=== PATIENT | female | born 1935 | race Caucasian/White ===

== ENCOUNTER 2021-05-21 19:29 | Inpatient (IN) | payer MEDICARE ==
[~2021-05-21] VITALS: Ht 170.2 cm; Wt 64.4 kg
[~2021-05-21 19:29] MED LIST: AZITHROMYCIN 2250 MG PO; DOXYCYCLINE 10100 MG PO; IBUPROFEN 800800 M1 PO; PREDNISONE 10 M10 MG PO; PROTONIX40 M1 PO; XANAX 0.25 MG0.25 MG PO; XOPENEX0.31 MG/3 INH
[2021-05-21 19:38] VITALS: BP 180/74
[2021-05-21 20:16] LABS: ABSOLUTE EOSINOPHILS 0.1 thou/uL (0.0-0.7); ABSOLUTE LYMPHOCYTES 0.8 thou/uL (0.8-5.3); ABSOLUTE MONOCYTES 0.9 thou/uL (0.0-1.2); ABSOLUTE NEUTROPHILS 8.6 thou/uL (1.6-8.1); BASOPHILS 0.3 %; HEMATOCRIT 46.4 % (37.0-47.0); HEMOGLOBIN 15.6 gm/dL (12.0-15.0); LYMPHOCYTES 7.4 %; MCH 30.6 pg (26.0-34.0); MCHC 33.5 g/dL (28.0-37.0); MCV 91.1 fL (80.0-100.0); MONOCYTES 8.8 %; MPV 9.4 fl. (7.2-11.1); NUCLEATED RBCS 0 /100WBC; PLATELET COUNT* 305 thou/uL (150-400); POLYS 82.5 %; RBC 5.09 mil/uL (4.20-5.00); RDW-CV 13.4 % (10.5-14.5); WBC 10.4 thou/uL (4.0-11.0)
[2021-05-21 20:17] LABS: INFLUENZA A ANTIGEN Negative (Negative); INFLUENZA B ANTIGEN Negative (Negative)
[2021-05-21 20:25] LABS: CALCIUM 8.8 mg/dL (8.5-10.1); CREATININE 1.1 mg/dL (0.6-1.3); POTASSIUM 3.7 mmol/L (3.5-5.1)
[2021-05-21 20:36] LABS: ALBUMIN 3.6 g/dL (3.4-5.0); TOTAL BILIRUBIN 0.7 mg/dL (<0.1-1.0); TOTAL PROTEIN 8.1 g/dL (6.4-8.2)
[2021-05-22] VITALS (8 sets, daily range): BP systolic 137–190; BP diastolic 51–65
--- NOTE | 2021-05-22 09:00 | EKG ---
[place] [address] ELECTROCARDIOGRAM REPORT Name: SCOTTAFRICADOMINIQUE Room: [place] [address] ADM IN .R.#: [id number] Admission: 05/21/21 Attend Phys: Iban Herman Discharge: Date of : 33 Date of Service: 05/21/211957 Report #: [id number] THIS REPORT FOR: //name// [facility] ED Test Date: 2021-05-21 Test Time: 19:58:49 Pat Name: DOMINIQUE PABON Department: Room: [facility] Gender: F Machine Operations Supervisor: MARGIE : 1935 Requested By: Patricia Luque Order Number: [id number] MD: Yony Mccord Measurements Intervals [place] Rate: 97 P: 0 VT: 159 QRS: 74 QRSD: 85 T: 243 QT: 300 QTc: 381 Interpretive Statements Sinus rhythm Nonspecific T abnormalities, diffuse leads, consider ischemia Compared to ECG 06/11/2015 08:10:46 No significant changes noted Electronically Signed On 05-22-2021 9:00:13 AEROSPACE QUALITY ENGINEER by Yony Mccord [email or web address] <ELECTRONICALLY SIGNED> By: Yony Mccord MD, FACC 05/22/21899 57 57 Yony Mccord MD, FAC /EPI
--- NOTE | 2021-05-22 09:00 | EKG ---
[place] [address] ELECTROCARDIOGRAM REPORT Name: SCOTTAFRICADOMINIQUE Pablo Room: [place] [address] ADM IN .R.#: [id number] Admission: 05/21/21 Attend Phys: Iban Herman Discharge: Date of : 33 Date of Service: 05/21/212205 Report #: [id number] THIS REPORT FOR: //name// [facility] ED Test Date: 2021-05-21 Test Time: 22:06:47 Pat Name: DOMINIQUE PABON Department: Room: [facility] Gender: F Correction Officer Head: : 1935 Requested By: Patricia Luque Order Number: [id number] MD: Yony Mccord Measurements Intervals [place] Rate: 94 P: -25 [place]: 169 QRS: 74 QRSD: 87 T: 171 QT: 327 QTc: 409 Interpretive Statements Sinus rhythm Borderline low voltage, extremity leads Borderline repolarization abnormality, consider ischemia Compared to ECG 05/21/2021 19:58:49 No significant changes noted Electronically Signed On 05-22-2021 9:00:32 ROASTER OPERATOR by Yony Mccord [email or web address] <ELECTRONICALLY SIGNED> By: Yony Mccord MD, FACC 05/22/21899 05 05 Yony Mccord MD, FAC /EPI
[2021-05-23 00:18] VITALS: BP 167/62
[2021-05-23 04:34] VITALS: BP 195/85
[2021-05-23 06:52] VITALS: BP 151/61
[2021-05-23 08:00] VITALS: BP 185/71
[2021-05-23 12:42] VITALS: BP 134/74
[2021-05-23 17:26] VITALS: BP 137/46
[2021-05-24 02:38] VITALS: BP 155/65
[2021-05-24 05:56] VITALS: BP 162/67
[2021-05-24 14:58] VITALS: BP 158/67
[2021-05-24 16:00] VITALS: BP 201/131
[2021-05-24 20:00] VITALS: BP 140/84
[2021-05-25 01:29] VITALS: BP 146/65
[2021-05-25 02:00] VITALS: BP 132/88
[2021-05-25 08:00] VITALS: BP 138/45
--- NOTE | 2021-05-25 09:26 | EKG ---
[place] [address] ELECTROCARDIOGRAM REPORT Name: DOMINIQUE PABON Room: [address] IN M.R.#: [id number] Admission: 05/21/21 Attend Phys: Iban Herman Discharge: Date of : 33 Date of Service: 05/24/212002 Report #: [id number] THIS REPORT FOR: //name// [facility] Test Date: 2021-05-24 Test Time: 20:03:10 Pat Name: DOMINIQUE PABON Department: Room: [address] Gender: F Inside Sales Engineer: : 1935 Requested By: Iban Herman Order Number: [id number] Reading MD: Nicolas Epstein Measurements Intervals [place] Rate: 128 P: [place]: QRS: 75 QRSD: 74 T: 212 QT: 283 QTc: 413 Interpretive Statements Atrial fibrillation Rare wide QRS beat Low voltage, precordial leads Nonspecific STT abnormality Compared to ECG 05/21/2021 22:06:47 Rare wide QRS beat is noted Sinus rhythm no longer present; atrial fib is noted Anterolateral ST segment depression has diminished Electronically Signed On 05-25-2021 9:26:20 SVP OPERATIONS by Nicolas Epstein [email or web address] <ELECTRONICALLY SIGNED> By: Nicolas Epstein MD, FACC 05/25/21 0926 02 02 Nicolas Epstein MD, LOCATED WITHIN [facility] /EPI
[2021-05-25 16:00] VITALS: BP 167/68
[2021-05-25 17:57] LABS: HEMATOCRIT 42.1 % (37.0-47.0); HEMOGLOBIN 14.1 gm/dL (12.0-15.0); MCH 29.9 pg (26.0-34.0); MCHC 33.4 g/dL (28.0-37.0); MCV 89.4 fL (80.0-100.0); MPV 9.9 fl. (7.2-11.1); NUCLEATED RBCS 0 /100WBC; PLATELET COUNT* 403 thou/uL (150-400); RBC 4.71 mil/uL (4.20-5.00); RDW-CV 13.6 % (10.5-14.5); WBC 20.5 thou/uL (4.0-11.0)
[2021-05-25 18:05] LABS: ALBUMIN 2.4 g/dL (3.4-5.0); APTT 30.5 Seconds (25.0-31.3); CALCIUM 8.4 mg/dL (8.5-10.1); INR 1.2; MAGNESIUM 2.7 mg/dL (1.8-2.4); POTASSIUM 3.7 mmol/L (3.5-5.1); PROTIME 12.2 Seconds (9.20-11.50); TOTAL BILIRUBIN 0.4 mg/dL (<0.1-1.0); TOTAL PROTEIN 6.4 g/dL (6.4-8.2)
[2021-05-25 18:43] LABS: ABSOLUTE LYMPHOCYTES 0.4 thou/uL (0.8-5.3); ABSOLUTE MONOCYTES 0.4 thou/uL (0.0-1.2); ABSOLUTE NEUTROPHILS 19.7 thou/uL (1.6-8.1); PLATELET ESTIMATE INCREASED
[2021-05-25 20:00] VITALS: BP 141/63
[2021-05-26 00:37] VITALS: BP 148/53
[2021-05-26 08:00] VITALS: BP 164/64
[2021-05-26 09:09] LABS: ABSOLUTE LYMPHOCYTES 0.8 thou/uL (0.8-5.3); ABSOLUTE MONOCYTES 0.9 thou/uL (0.0-1.2); ABSOLUTE NEUTROPHILS 18.9 thou/uL (1.6-8.1); BASOPHILS 0.2 %; HEMATOCRIT 44.5 % (37.0-47.0); HEMOGLOBIN 14.7 gm/dL (12.0-15.0); LYMPHOCYTES 3.7 %; MCH 30.1 pg (26.0-34.0); MCHC 33.1 g/dL (28.0-37.0); MCV 90.9 fL (80.0-100.0); MONOCYTES 4.3 %; MPV 9.4 fl. (7.2-11.1); NUCLEATED RBCS 0 /100WBC; PLATELET COUNT* 447 thou/uL (150-400); POLYS 91.8 %; RBC 4.89 mil/uL (4.20-5.00); WBC 20.5 thou/uL (4.0-11.0)
[2021-05-26 09:17] LABS: CALCIUM 8.3 mg/dL (8.5-10.1); CREATININE 0.9 mg/dL (0.6-1.3); POTASSIUM 3.7 mmol/L (3.5-5.1)
[2021-05-26 12:22] VITALS: BP 153/68
[2021-05-26 12:50] VITALS: BP 112/78
[2021-05-26 16:00] VITALS: BP 157/66
[2021-05-26 20:00] VITALS: BP 165/74
[2021-05-27] VITALS: BP 163/63
[2021-05-27 08:00] VITALS: BP 149/81
[2021-05-27 12:00] VITALS: BP 151/64
[2021-05-27 16:00] VITALS: BP 194/81
[2021-05-27 16:10] LABS: CALCIUM 7.1 mg/dL (8.5-10.1)
[2021-05-28] VITALS (7 sets, daily range): BP systolic 149–181; BP diastolic 64–100
[2021-05-28 06:51] LABS: HEMATOCRIT 40.6 % (37.0-47.0); HEMOGLOBIN 13.3 gm/dL (12.0-15.0); MCH 29.6 pg (26.0-34.0); MCHC 32.8 g/dL (28.0-37.0); MCV 90.5 fL (80.0-100.0); MPV 9.4 fl. (7.2-11.1); NUCLEATED RBCS 0 /100WBC; PLATELET COUNT* 418 thou/uL (150-400); RBC 4.48 mil/uL (4.20-5.00); RDW-CV 13.8 % (10.5-14.5); WBC 18.5 thou/uL (4.0-11.0)
[2021-05-28 07:05] LABS: ALBUMIN 2.4 g/dL (3.4-5.0); CALCIUM 7.8 mg/dL (8.5-10.1); TOTAL BILIRUBIN 0.6 mg/dL (<0.1-1.0); TOTAL PROTEIN 5.7 g/dL (6.4-8.2)
[2021-05-28 07:27] LABS: POTASSIUM 4.5 mmol/L (3.5-5.1)
[2021-05-28 10:03] LABS: ABSOLUTE LYMPHOCYTES 0.7 thou/uL (0.8-5.3); ABSOLUTE MONOCYTES 1.1 thou/uL (0.0-1.2); ABSOLUTE NEUTROPHILS 16.7 thou/uL (1.6-8.1)
[2021-05-28 10:04] LABS: PLATELET ESTIMATE ADEQUATE
--- NOTE | 2021-05-28 14:46 | 2DMMODE ---
[place] [address] 2 D/M-MODE ECHOCARDIOGRAM Name: SCOTTAFRICADOMINIQUE Pablo Room: [address] IN [facility]#: [id number] Admission: 05/21/21 Attend Phys: Iban Herman Discharge: Date of : 34 Date of Service: 05/28/21 1445 Report #: [id number] THIS REPORT FOR: cc: Tim Wills MD, Dean L. MD Blick, David R. MD [facility] ~ APPROVED REPORT Study performed: 05/28/2021 10:27:34 EXAM: Comprehensive 2D, Doppler, and color-flow Echocardiogram Patient Location: In-Patient Room #: [facility] Status: routine BSA: 1.74 HR: 96 bpm BP: 167/64 mmHg Rhythm: Atrial Fibrillation Other Information Study Quality: Good Indications Atrial Fibrillation Dyspnea 2D Dimensions IVSd: 9.42 (7-11mm) LVOT Diam: 22.02 (18-24mm) LVDd: 44.44 mm PWd: 11.07 (7-11mm) Ascending Ao: 31.16 (22-36mm) LVDs: 31.70 (25-40mm) Aortic Root: 33.45 mm Volumes Left Atrial Volume (Systole) LA ESV Index: 24.20 mL/m2 Aortic Valve AoV Peak Jovany.: 1.13 m/s AO Peak Gr.: 5.11 mmHg LVOT Max P.12 mmHg AO Mean Gr.: 2.85 mmHg LVOT Mean P.99 mmHg LVOT Max V: 0.73 m/s AO V2 VTI: 21.41 cm LVOT Mean V: 0.46 m/s WILLY (VTI): 2.88 cm2 LVOT V1 VTI: 16.21 [place] [address] 2 D/M-MODE ECHOCARDIOGRAM Name: DOMINIQUE PABON Room: [address] IN [facility]#: [id number] Admission: 05/21/21 Attend Phys: Iban Herman Discharge: Date of : 33 Date of Service: 05/28/21 1445 Report #: [id number] Pulmonary Valve PV Peak Jovany.: 0.83 m/s PV Peak Gr.: 2.74 mmHg Tricuspid Valve RAP Estimate: 5.00 mmHg TR Peak Gr.: 26.86 mmHg RVSP: 31.00 mmHg PA Pressure: 31.00 mmHg Left Ventricle The left ventricle is normal size. There is normal LV segmental wall motion. There is normal left ventricular wall thickness. Left ventricular systolic function is normal. The left ventricular ejection fraction is within the normal range. LVEF is 65-70%. This study is not technically sufficient to allow evaluation of the LV diastolic function due to atrial fibrillation. Right Ventricle The right ventricle is normal size. The right ventricular systolic function is normal. Atria The left atrium size is normal. The right atrium size is normal. Aortic Valve The aortic valve is normal in structure. Trace aortic regurgitation. There is no aortic valvular stenosis. Mitral Valve The mitral valve is normal in structure. Mild mitral regurgitation. No evidence of mitral valve stenosis. Tricuspid Valve The tricuspid valve is normal in structure. Trace tricuspid regurgitation. estimated pa pressure 3a5 mm Hg Pulmonic Valve The pulmonary valve is normal in structure. Trace pulmonic regurgitation. Great Vessels The aortic root is normal in size. IVC is normal in size and collapses >50% [place] [address] 2 D/M-MODE ECHOCARDIOGRAM Name: DOMINIQUE PABON Room: [address]#: [id number] Admission: 05/21/21 Attend Phys: Iban Herman Discharge: Date of : 34 Date of Service: 05/28/21 1445 Report #: [id number] There is no pericardial effusion. <Conclusion> LVEF is 65-70%. Mild mitral regurgitation. Trace tricuspid regurgitation. estimated pa pressure 3a5 mm Hg <ELECTRONICALLY SIGNED> By: Jero Weaver MD, FACGurwinder 05/28/21 1445 1445 1445 Jero Weaver MD, [facility] /INF
[2021-05-29] VITALS: BP 154/78
[2021-05-29 02:06] LABS: MYCOPLASMA PNEUMONIA IgG <100 U/mL (0-99)
[2021-05-29 04:00] VITALS: BP 167/74
[2021-05-29 08:00] VITALS: BP 139/65
[2021-05-29 12:00] VITALS: BP 158/71
[2021-05-29 16:00] VITALS: BP 149/67
[2021-05-29 20:30] VITALS: BP 163/66
[2021-05-29 23:06] LABS: MYCOPLASMA PNEUMONIA IgM <770 U/mL (0-769)
[2021-05-30 04:00] VITALS: BP 135/53
[2021-05-30 07:35] LABS: ALBUMIN 2.4 g/dL (3.4-5.0); CREATININE 0.9 mg/dL (0.6-1.3); POTASSIUM 3.9 mmol/L (3.5-5.1); TOTAL BILIRUBIN 0.7 mg/dL (<0.1-1.0); TOTAL PROTEIN 5.6 g/dL (6.4-8.2)
[2021-05-30 07:48] LABS: ABSOLUTE LYMPHOCYTES 0.6 thou/uL (0.8-5.3); ABSOLUTE MONOCYTES 0.9 thou/uL (0.0-1.2); ABSOLUTE NEUTROPHILS 21.1 thou/uL (1.6-8.1); BASOPHILS 0.1 %; HEMATOCRIT 42.1 % (37.0-47.0); HEMOGLOBIN 13.6 gm/dL (12.0-15.0); LYMPHOCYTES 2.5 %; MCH 29.3 pg (26.0-34.0); MCHC 32.3 g/dL (28.0-37.0); MCV 90.8 fL (80.0-100.0); MONOCYTES 3.9 %; MPV 9.6 fl. (7.2-11.1); NUCLEATED RBCS 0 /100WBC; PLATELET COUNT* 385 thou/uL (150-400); POLYS 93.5 %; RBC 4.64 mil/uL (4.20-5.00); RDW-CV 13.8 % (10.5-14.5); WBC 22.6 thou/uL (4.0-11.0)
[2021-05-30 08:00] VITALS: BP 145/63
[2021-05-30 13:08] VITALS: BP 137/56
[2021-05-30 16:00] VITALS: BP 188/74
[2021-05-30 20:00] VITALS: BP 155/91
[2021-05-31] VITALS: BP 105/29
[2021-05-31 04:00] VITALS: BP 139/61
[2021-05-31 08:00] VITALS: BP 129/47
[2021-05-31 12:02] VITALS: BP 159/57
[2021-05-31 16:00] VITALS: BP 186/69
[2021-06-01 00:52] VITALS: BP 161/55
[2021-06-01 04:48] VITALS: BP 144/73
[2021-06-01 08:00] VITALS: BP 179/84
[2021-06-01 13:12] VITALS: BP 167/80
[2021-06-01 16:00] VITALS: BP 179/79
[2021-06-01 20:00] VITALS: BP 173/81
[2021-06-02] VITALS: BP 176/62
[2021-06-02 04:01] VITALS: BP 160/62
[2021-06-02 08:00] VITALS: BP 150/50
[2021-06-02 11:39] LABS: ABSOLUTE LYMPHOCYTES 1.3 thou/uL (0.8-5.3); ABSOLUTE MONOCYTES 1.1 thou/uL (0.0-1.2); ABSOLUTE NEUTROPHILS 25.3 thou/uL (1.6-8.1); BASOPHILS 0.1 %; HEMATOCRIT 43.7 % (37.0-47.0); HEMOGLOBIN 14.4 gm/dL (12.0-15.0); LYMPHOCYTES 4.8 %; MCH 29.9 pg (26.0-34.0); MCHC 32.9 g/dL (28.0-37.0); MONOCYTES 3.9 %; MPV 9.6 fl. (7.2-11.1); NUCLEATED RBCS 0 /100WBC; PLATELET COUNT* 292 thou/uL (150-400); POLYS 91.2 %; RBC 4.81 mil/uL (4.20-5.00); RDW-CV 13.8 % (10.5-14.5); WBC 27.7 thou/uL (4.0-11.0)
[2021-06-02 11:55] LABS: ALBUMIN 2.6 g/dL (3.4-5.0); CALCIUM 8.1 mg/dL (8.5-10.1); CREATININE 0.9 mg/dL (0.6-1.3); MAGNESIUM 2.6 mg/dL (1.8-2.4); POTASSIUM 4.3 mmol/L (3.5-5.1); TOTAL BILIRUBIN 0.8 mg/dL (<0.1-1.0); TOTAL PROTEIN 5.7 g/dL (6.4-8.2)
[2021-06-02 12:00] VITALS: BP 150/50
[2021-06-02 16:00] VITALS: BP 141/67
[2021-06-02 20:00] VITALS: BP 142/61
[2021-06-03] VITALS: BP 154/46
[2021-06-03 04:00] VITALS: BP 166/66
[2021-06-03 11:57] LABS: HEMATOCRIT 41.2 % (37.0-47.0); HEMOGLOBIN 13.4 gm/dL (12.0-15.0); MCH 29.5 pg (26.0-34.0); MCHC 32.5 g/dL (28.0-37.0); MCV 90.8 fL (80.0-100.0); MPV 10.1 fl. (7.2-11.1); NUCLEATED RBCS 0 /100WBC; PLATELET COUNT* 243 thou/uL (150-400); RBC 4.53 mil/uL (4.20-5.00); RDW-CV 13.8 % (10.5-14.5); WBC 25.3 thou/uL (4.0-11.0)
[2021-06-03 12:00] VITALS: BP 167/74
[2021-06-03 12:12] LABS: ALBUMIN 2.3 g/dL (3.4-5.0); CALCIUM 7.8 mg/dL (8.5-10.1); CREATININE 0.8 mg/dL (0.6-1.3); MAGNESIUM 2.6 mg/dL (1.8-2.4); POTASSIUM 4.6 mmol/L (3.5-5.1); TOTAL BILIRUBIN 0.7 mg/dL (<0.1-1.0); TOTAL PROTEIN 4.9 g/dL (6.4-8.2)
[2021-06-03 12:53] LABS: ABSOLUTE LYMPHOCYTES 1.8 thou/uL (0.8-5.3); ABSOLUTE MONOCYTES 0.8 thou/uL (0.0-1.2); ABSOLUTE NEUTROPHILS 22.8 thou/uL (1.6-8.1); PLATELET ESTIMATE ADEQUATE
[2021-06-03 16:22] VITALS: BP 128/57
[2021-06-03 20:00] VITALS: BP 161/70
--- NOTE | 2021-06-03 21:54 | CON ---
[address] [address] CONSULTATION Name: DOMINIQUE PABON Room: [address] IN M.R.#: [id number] Admission: 05/21/21 Attend Phys: Rob Koo Discharge: Date of : 34 Report #: [id number] THIS REPORT FOR: cc: Tim Wills MD, Dean L. MD Pervez, Adeel MD ~ DATE OF CONSULTATION: 05/25/2021 CONSULT REQUESTED BY: Iban Herman DO. INDICATION FOR CONSULTATION: Acute hypoxemic respiratory failure secondary to COVID-19. HISTORY OF PRESENT ILLNESS: An 85-year-old female. She was admitted with acute respiratory failure secondary to COVID-19. There has been progressively worsening oxygenation. Initially, she was on 2 liters of oxygen and now up to 15 liters oxygen. She maintained O2 saturation in the low 90s. Had a chest x-ray repeated, which does show significant worsening of previously seen infiltrate. She has also significant atelectasis on the right side. There is not much swelling of lower extremities or calf pain. REVIEW OF SYSTEMS: Negative except as mentioned above. PAST MEDICAL HISTORY: Diabetes, hypertension, and coronary artery disease. I do not have a measure of her left ventricular ejection fraction available at this time. Has had a heart murmur since childhood, bronchial asthma, diverticulitis, elbow surgery, left hip surgery, hypertension, hysterectomy, , appendectomy, and frequent UTIs. SOCIAL HISTORY: There is a previous history of smoking, unable to quantify at this time. CURRENT MEDICATIONS: List in [employer] reviewed. HOME MEDICATIONS: List in [employer] reviewed. IMMUNIZATION HISTORY: Has had some vaccine for COVID. I do not have details available. ALLERGIES: List in [employer] reviewed. It does not appear that the patient is in fact allergic to penicillins because she is tolerating Zosyn without problems. MORPHINE, SULFONAMIDE ANTIBIOTICS, LEVAQUIN, CODEINE, AND CEPHALOSPORINS ARE ALSO MENTIONED ALLERGIES. THERE IS ALSO MENTION OF IODINE DYE ALLERGY, BUT SHE HAD A CTA CHEST EARLIER WITH NO [place] [address] CONSULTATION Name: DOMINIQUE PABON Room: [address]#: [id number] Admission: 05/21/21 Attend Phys: Rob Koo Discharge: Date of : 34 Report #: [id number] PHYSICAL EXAMINATION: GENERAL: She is awake. VITAL SIGNS: In the records and these are reviewed. THROAT: No erythema. NECK: Does not show raised JVP. CHEST: Breath sounds are bilaterally equal. Occasional rales at right lung base. HEART: Regular. No murmur. ABDOMEN: Soft and nontender. EXTREMITIES: Lower extremities, no edema and no calf tenderness. LABORATORY DATA: The patient's lab work and imaging in [employer] reviewed. ASSESSMENT AND PLAN: 1. Acute hypoxemic respiratory failure secondary to COVID-19. Chest x-ray findings are consistent with secondary bacterial pneumonia. Also, there is significant atelectasis on the right side. Continue to titrate oxygen. If she fails to improve, then recommend adding BiPAP while asleep. 2. COVID-19. Continue with dexamethasone at current dose. Continue remdesivir. I extended duration of remdesivir to 10 days. Follow LFTs. I recommend Actemra. Unfortunately Actemra is not available. 3. Pulmonary infiltrates, these have worsened. Also, there are lobar infiltrates consistent with bacterial infection. Recommend continuing with Zosyn. We would discontinue doxycycline and start linezolid as well as azithromycin. More cultures and serologies are also ordered. 4. Atelectasis, possible consideration for BiPAP as above. I will order Mucomyst nebs. In addition, suggest other conservative therapy for atelectasis including incentive spirometry and ambulation. May also benefit from chest PT. 5. History of bronchial asthma. I do not have details available. Regardless she is on a steroid, we will also have her on nebulized bronchodilators. 6. Deep venous thrombosis prophylaxis. She is on intermediate dose Lovenox. 7. Gastrointestinal prophylaxis, Protonix. 8. Clostridium difficile prophylaxis, Lactinex. Thanks for this consultation. <ELECTRONICALLY SIGNED> By: Kristofer Esparza MD 06/03/21 2154 2228 0003Kristofer Esparza MD /nt
[2021-06-04] VITALS: BP 172/73
[2021-06-04 04:00] VITALS: BP 178/72
[2021-06-04 12:35] VITALS: BP 168/66
[2021-06-04] MEDS ORDERED: ADVAIR 250-501 EACH INH (13:07)
[2021-06-04] MEDS ORDERED: VENTOLIN HFA 1818 GM INH (13:07)
[2021-06-04] MEDS ORDERED: METOPROLOL TART25 MG PO (13:07)
[2021-06-04] MEDS ORDERED: DEXAMETHASONE1 MG PO (13:08)
[2021-06-04 14:50] VITALS: BP 168/66
== END 2021-06-04 15:04 | DRG 177 ==
LOC: M.ERS 19:29 → M.TBA-ER 20:32 → M.ORTHSURG 05-22 18:47 → M.2W 06-02 18:05
PROVIDERS: Internal Medicine; Internal Medicine Critical Care Medicine; Nurse Practitioner Family; Pediatrics; Personal Emergency Response Attendant; ADMIT Internal Medicine; ATTEND Internal Medicine
PROC: XW033E5 Introduction of Remdesivir Anti-infective into Peripheral Vein, Percutaneous Approach, New Technology Group 5 (ICD-10-PCS; principal; 2021-05-22)
PROC: 02HV33Z Insertion of Infusion Device into Superior Vena Cava, Percutaneous Approach (ICD-10-PCS; principal; 2021-05-22)
PROC: 5A0935A Assistance with Respiratory Ventilation, Less than 24 Consecutive Hours, High Flow/Velocity Cannula (ICD-10-PCS; 2021-05-24)
PROC: 5A0935A Assistance with Respiratory Ventilation, Less than 24 Consecutive Hours, High Flow/Velocity Cannula (ICD-10-PCS; 2021-05-25)
PROC: 5A0935A Assistance with Respiratory Ventilation, Less than 24 Consecutive Hours, High Flow/Velocity Cannula (ICD-10-PCS; 2021-05-26)
PROC: 5A0935A Assistance with Respiratory Ventilation, Less than 24 Consecutive Hours, High Flow/Velocity Cannula (ICD-10-PCS; 2021-05-27)
PROC: 5A0935A Assistance with Respiratory Ventilation, Less than 24 Consecutive Hours, High Flow/Velocity Cannula (ICD-10-PCS; 2021-05-28)
PROC: 5A0935A Assistance with Respiratory Ventilation, Less than 24 Consecutive Hours, High Flow/Velocity Cannula (ICD-10-PCS; 2021-05-30)
PROC: 5A0935A Assistance with Respiratory Ventilation, Less than 24 Consecutive Hours, High Flow/Velocity Cannula (ICD-10-PCS; 2021-05-31)
DX: U07.1 COVID-19 (principal); J96.01 Acute respiratory failure with hypoxia; J12.82 Pneumonia due to coronavirus disease 2019; E43 Unspecified severe protein-calorie malnutrition; J15.9 Unspecified bacterial pneumonia; J98.11 Atelectasis; J45.909 Unspecified asthma, uncomplicated; E11.9 Type 2 diabetes mellitus without complications; I25.10 Atherosclerotic heart disease of native coronary artery without angina pectoris; F41.9 Anxiety disorder, unspecified; D72.829 Elevated white blood cell count, unspecified; I10 Essential (primary) hypertension; Z90.710 Acquired absence of both cervix and uterus; Z90.49 Acquired absence of other specified parts of digestive tract; Z88.0 Allergy status to penicillin; Z88.2 Allergy status to sulfonamides; Z88.8 Allergy status to other drugs, medicaments and biological substances; Z88.6 Allergy status to analgesic agent; Z88.1 Allergy status to other antibiotic agents; Z91.041 Radiographic dye allergy status; Z87.891 Personal history of nicotine dependence; Z68.22 Body mass index [BMI] 22.0-22.9, adult; Z28.21 Immunization not carried out because of patient refusal

== ENCOUNTER 2021-06-10 17:56 | Inpatient (IN) | payer MEDICARE ==
[~2021-06-10] VITALS: Ht 170.2 cm; Wt 72.1 kg
--- NOTE | ~2021-06-10 | EMS ---
[facility] [address] [place] [address] EMS Patient Care Report Name: DOMINIQUE PABON Room: [facility] M.R.#: [id number] Admission: Attend Phys: Discharge: Date of : 34 Report #: [id number] THIS REPORT FOR: //name// Report Transmitted: 06/10/2021 18:21 EMS Care Summary [facility] [place] Incident 212 @ 06/10/2021 16:55 Incident Location [address] [place] [address] Patient DOMINIQUE PABON Female, 85 Years 1935 Patient Address [address] [place], [place] [id number] Patient History Chronic Obstructive Pulmonary Disease (COPD),Type 2 diabetes mellitus,Heart disease, unspecified,Angina,Hypertension (HTN),Pneumonia, unspecified organism,Novel Coronavirus (COVID-19),Unspecified asthma, Patient Allergies , Patient Medications Advair, Lovenox, Metoprolol, Nystatin, Tramadol, Albuterol, Chief Complaint Hip/pelvic pain Disposition Transported No Lights/Shunk Dispatch Reason Traumatic Injury Transported To [facility] Narrative [id number] DISPATCHED TO A LOCAL NURSING FACILITY FOR A HIP FRACTURE. ON SCENE, EMS WAS MET BY STAFF WITH AN 85 YOF COMPLAINING OF RIGHT HIP PX. STAFF STATES PT [facility] [address] [place] [address] EMS Patient Care Report Name: DOMINIQUE PABON Room: [facility]#: [id number] Admission: Attend Phys: Discharge: Date of : 34 Report #: [id number] SUFFERED A FALL LAST YESTERDAY AND WAS NOT SEEN AT THE HOSPITAL. STAFF STATES THEY WERE UNABLE TO HAVE A STAT XRAY PERFORMED DUE TO WEATHER, REPORTS AND XRAY WAS DONE EARLIER TODAY AND RESULTS SHOWED A FRACTURE IN THE RIGHT HIP. STAFF STATES THE NURSE practitioner ORDERED FOR THE PT TO BE TRANSPORTED FOR TREATMENT, STAFF ADVISES THE PT HAS NOT RECEIVED ANY PRN PAIN MEDICATIONS. STAFF REPORTS THE PT IS SUPPOSED TO BE ON OXYGEN BUT PT CONTINUES TO REMOVE IT, STATES BASELINE SPO2 IS 90-93% ON ROOM AIR. STAFF STATES PT IS ADMITTED TO REHAB FOR GAINING STRENGTH POST COVID PNEUMONIA. PT STATES SHE WAS ATTEMPTING TO CALL FOR HELP TO GET OUT OF BED TO USE THE RESTROOM WHEN NO ONE CAME, PT STATES SHE ENDED UP ROLLING OUT OF BED AND ONTO THE FLOOR. PT CLAIMS STAFF "LEFT ME ON THE FLOOR FOR TWO DAYS" AND WOULD NOT HELP HER. PT STATES PAIN IS FELT IN HER RIGHT HIP CLOSER TO THE POSTERIOR. PT STATES PX IS PROVOKED WITH MOVEMENT AND TOUCH. PT STATES SHE IS STILL ABLE TO MOVE HER LEG AND SENSATION IS IN TACT. PT STATES PX FEELS LIKE "SOMETHING IS PULLING ON MY FOOT." PT STATES AT REST SHE FEELS NO PX. PT STATES SHE IS NOT MORE SHORT OF BREATH THAN NORMAL WITHOUT OXYGEN. PT DENIES CHEST PX, SOA, NAUSEA/VOMITING/DIARRHEA, DIZZINESS, HEADACHE, FEVER, CHILLS. UPON ARRIVAL, PT WAS FOUND LAYING SUPINE IN BED, PT DID NOT APPEAR TO BE IN ANY DISTRESS BUT WAS HEARD LOUDLY CALLING OUT FOR STAFF. PT WAS AWAKE ALERT AND ORIENTED, AIRWAY WAS PATENT AND CLEAR, BREATHING WAS NORMAL AND REGULAR - NON LABORED, CIRCULATION WAS NORMAL AND IRREGULAR WITH EQUAL RADIAL PULSES, SKIN AND PHYSICAL ASSESSMENT NOTED WITH NO OTHER SIGNS OF TRAUMA. BSI, PT CONTACT, ABCS, PT MOVED TO [facility] VIA SHEET TRANSFER AND SECURED, PT LOADED INTO UNIT AND LOCKED IN PLACE, VITALS AND TREATMENTS NOTED, TRANSPORT INITIATED, PT FREQUENTLY REASSESSED WITH NO CHANGE IN CONDITION OR FURTHER DETERIORATION, AT DESTINATION PT WAS UNLOADED FROM UNIT AND WHEELED INTO ED, PT MOVED FROM [facility] TO ED BED VIA SHEET TRANSFER, VERBAL REPORT GIVEN AND PT CARE TRANSFERRED TO RN AT RECEIVING FACILITY. [id number] RETURNED TO SERVICE WITHOUT INCIDENT. Initial Vitals @17:15Pain: 01/16, @17:45Pain: 0, @17:28SpO2: 93, @17:41SpO2: 91, @17:49SpO2: 91, @17:31 @17:28P: 77,R: 18,BP: 177/98,Revised Trauma: 8, @17:41P: 63,R: 18,BP: 148/75,Revised Trauma: 8, @17:49P: 123,R: 18,BP: 170/85,Revised Trauma: 8, @17:28GCS: 15, @17:41GCS: 15, @17:49GCS: 15, @17:39Glucose: 187, Assessments @17:08MENTAL:SKIN:HEENT:[place] [address] EMS Patient Care Report Name: CMDOMINIQUE Pablo Room: [facility]#: [id number] Admission: Attend Phys: Discharge: Date of : 34 Report #: [id number] SOUNDS:ABDOMEN:PELVIS//GI:EXTREMITIES:PULSE:NEURO: Impression Injury Procedures @17:37 IV Therapy - cc () [facility] Response: UnchangedSucceeded @17:31 12-Lead ECG Response: UnchangedSucceeded Timeline 16:54,Dispatch Notified 16:54,Psap Call 16:55,Dispatched 16:56,En Route 17:07,On Scene 17:08,At Patient 17:15,BP: / M,PULSE: ,RR: R,SPO2: Ox,ETCO2: ,BG: ,PAIN: 8,GCS: , 17:28,BP: / M,PULSE: ,RR: R,SPO2: 93 Ox,ETCO2: ,BG: ,PAIN: ,GCS: , 17:28,BP: 177/98 M,PULSE: 77,RR: 18 R,SPO2: Ox,ETCO2: ,BG: ,PAIN: ,GCS: , 17:28,BP: / M,PULSE: ,RR: R,SPO2: Ox,ETCO2: ,BG: ,PAIN: ,GCS: 15, 17:31,12-Lead ECG,Response: UnchangedSucceeded, 17:31,BP: / M,PULSE: ,RR: R,SPO2: Ox,ETCO2: ,BG: ,PAIN: ,GCS: , 17:37,IV Therapy - cc Site: Antecubital-Left,Response: UnchangedSucceeded, 17:39,BP: / M,PULSE: ,RR: R,SPO2: Ox,ETCO2: ,B,PAIN: ,GCS: , 17:41,BP: / M,PULSE: ,RR: R,SPO2: 91 Ox,ETCO2: ,BG: ,PAIN: ,GCS: , 17:41,BP: 148/75 M,PULSE: 63,RR: 18 R,SPO2: Ox,ETCO2: ,BG: ,PAIN: ,GCS: , 17:41,BP: / M,PULSE: ,RR: R,SPO2: Ox,ETCO2: ,BG: ,PAIN: ,GCS: 15, 17:41,Depart Scene 17:45,BP: / M,PULSE: ,RR: R,SPO2: Ox,ETCO2: ,BG: ,PAIN: 0,GCS: , 17:49,BP: / M,PULSE: ,RR: R,SPO2: 91 Ox,ETCO2: ,BG: ,PAIN: ,GCS: , 17:49,BP: 170/85 M,PULSE: 123,RR: 18 R,SPO2: Ox,ETCO2: ,BG: ,PAIN: ,GCS: , 17:49,BP: / M,PULSE: ,RR: R,SPO2: Ox,ETCO2: ,BG: ,PAIN: ,GCS: 15, 17:52,At Destination 18:09,Call Closed Disclaimer v1.1 Copyright 2021 [employer] This EMS Care Summary contains data elements from the applicable legal record (which may be displayed differently). It is designed to provide pertinent information for the following purposes: continuity of care, clinical quality, and state data reporting. The complete legal record is available to ED staff and administrators of the receiving hospital in [employer]'s Patient Tracker. All data is provided "as is."
[~2021-06-10 17:56] MED LIST changes: +ADVAIR 250-501 EACH INH; +DEXAMETHASONE1 MG PO; +METOPROLOL TART25 MG PO; +VENTOLIN HFA 1818 GM INH
[2021-06-10 18:04] VITALS: BP 155/75
[2021-06-10] MEDS ORDERED: NYSTATIN15 G2 TOP (18:08)
[2021-06-10] MEDS ORDERED: MELATONIN5 MG SUBLING (18:08)
[2021-06-10] MEDS ORDERED: LOVENOX40 MG/0.4 SUBQ (18:09)
[2021-06-10] MEDS ORDERED: TRAMADOL 50 MG50 MG PO (18:09)
[2021-06-10 18:50] LABS: HEMATOCRIT 39.5 % (37.0-47.0); HEMOGLOBIN 13.1 gm/dL (12.0-15.0); MCH 30.1 pg (26.0-34.0); MCHC 33.1 g/dL (28.0-37.0); MCV 91.2 fL (80.0-100.0); MPV 8.8 fl. (7.2-11.1); NUCLEATED RBCS 0 /100WBC; PLATELET COUNT* 203 thou/uL (150-400); RBC 4.33 mil/uL (4.20-5.00); WBC 19.4 thou/uL (4.0-11.0)
[2021-06-10 19:00] LABS: CALCIUM 7.7 mg/dL (8.5-10.1); CREATININE 0.9 mg/dL (0.6-1.3); POTASSIUM 4.3 mmol/L (3.5-5.1)
[2021-06-10 19:05] LABS: ALBUMIN 2.1 g/dL (3.4-5.0); TOTAL BILIRUBIN 0.8 mg/dL (<0.1-1.0); TOTAL PROTEIN 5.3 g/dL (6.4-8.2)
[2021-06-10 19:19] LABS: ABSOLUTE LYMPHOCYTES 1.2 thou/uL (0.8-5.3); ABSOLUTE MONOCYTES 0.6 thou/uL (0.0-1.2); ABSOLUTE NEUTROPHILS 17.7 thou/uL (1.6-8.1); PLATELET ESTIMATE ADEQUATE
[2021-06-10 21:33] LABS: URINE BILIRUBIN NEGATIVE (Negative); URINE BLOOD NEGATIVE (Negative); URINE CLARITY CLEAR; URINE COLOR YELLOW; URINE GLUCOSE-RANDOM NEGATIVE (Negative); URINE KETONES TRACE (Negative); URINE LEUKOCYTES-REFLEX NEGATIVE (Negative); URINE NITRITE-REFLEX NEGATIVE (Negative); URINE PROTEIN TRACE (Negative); URINE UROBILINOGEN 0.2 E.U./dl (0.2-1.0)
[2021-06-11 01:07] LABS: INR 1.1; PROTIME 11.6 Seconds (9.20-11.50)
[2021-06-11 01:30] VITALS: BP 160/68
[2021-06-11 05:33] VITALS: BP 195/83
[2021-06-11 09:50] VITALS: BP 130/89
--- NOTE | 2021-06-11 10:57 | EKG ---
[place] [address] ELECTROCARDIOGRAM REPORT Name: SCOTTAFRICADOMINIQUE Room: [place] [address] ADM IN .R.#: [id number] Admission: 06/10/21 Attend Phys: Iban Herman Discharge: Date of : 33 Date of Service: 06/10/21 1838 Report #: [id number] THIS REPORT FOR: //name// [facility] ED Test Date: 2021-06-10 Test Time: 18:38:09 Pat Name: DOMINIQUE PABON Department: Room: [facility] Gender: F On Car Supervisor: VINCENT : 1935 Requested By: Anabel Kitchen Order Number: [id number] MD: Jero Weaver Measurements Intervals [place] Rate: 144 P: MD: QRS: 76 QRSD: 77 T: 240 QT: 267 QTc: 413 Interpretive Statements Atrial fibrillation with rapid V-rate septal infarct, old Repolarization abnormality, prob rate related Compared to ECG 05/24/2021 20:03:10 Myocardial infarct finding now present rate has increased Electronically Signed On 06-11-2021 10:56:52 JAWBONE BREAKER by Jero Weaver [email or web address] <ELECTRONICALLY SIGNED> By: Jero Weaver MD, [facility] 06/11/21 1056 1838 1838 Jero Weaver MD, [facility] /EPI
[2021-06-11 12:16] VITALS: BP 134/70
[2021-06-11 20:00] VITALS: BP 148/56
[2021-06-12] VITALS: BP 144/59
[2021-06-12 04:00] VITALS: BP 152/77
[2021-06-12 05:47] LABS: ABSOLUTE LYMPHOCYTES 0.5 thou/uL (0.8-5.3); ABSOLUTE MONOCYTES 0.6 thou/uL (0.0-1.2); ABSOLUTE NEUTROPHILS 16.8 thou/uL (1.6-8.1); BASOPHILS 0.1 %; HEMATOCRIT 28.8 % (37.0-47.0); LYMPHOCYTES 2.6 %; MCH 30.1 pg (26.0-34.0); MCHC 32.9 g/dL (28.0-37.0); MCV 91.6 fL (80.0-100.0); MONOCYTES 3.6 %; MPV 8.9 fl. (7.2-11.1); NUCLEATED RBCS 0 /100WBC; PLATELET COUNT* 159 thou/uL (150-400); POLYS 93.7 %; RBC 3.15 mil/uL (4.20-5.00); RDW-CV 14.2 % (10.5-14.5)
[2021-06-12 05:54] LABS: HEMOGLOBIN 9.5 gm/dL (12.0-15.0)
[2021-06-12 05:56] LABS: CALCIUM 7.5 mg/dL (8.5-10.1); CREATININE 0.7 mg/dL (0.6-1.3); POTASSIUM 3.8 mmol/L (3.5-5.1)
[2021-06-12 08:20] VITALS: BP 154/68
--- NOTE | 2021-06-12 10:42 | EKG ---
[place] [address] ELECTROCARDIOGRAM REPORT Name: DOMINIQUE PABON Room: [address] IN M.R.#: [id number] Admission: 06/10/21 Attend Phys: Iban Herman Discharge: Date of : 33 Date of Service: 06/12/21 1023 Report #: [id number] THIS REPORT FOR: //name// [facility] Test Date: 2021-06-12 Test Time: 10:23:52 Pat Name: DOMINIQUE PABON Department: Room: [facility] Gender: F Neurology Technologist: : 1935 Requested By: Jero Weaver Order Number: [id number] Reading MD: Yony Mccord Measurements Intervals [place] Rate: 65 P: [place]: QRS: 52 QRSD: 84 T: 211 QT: 419 QTc: 436 Interpretive Statements Atrial fibrillation Repol abnrm suggests ischemia, anterolateral Compared to ECG 06/10/2021 18:38:09 Possible ischemia now present Myocardial infarct finding no longer present Electronically Signed On 06-12-2021 10:41:51 CARE PARTNER by Yoyn Mccord [email or web address] <ELECTRONICALLY SIGNED> By: Yony Mccord MD, FAC 06/12/21 1041 1023 1023 Yony Mccord MD, [facility] /EPI
[2021-06-12 12:00] VITALS: BP 130/57
[2021-06-12 16:00] VITALS: BP 122/62
[2021-06-13 00:29] VITALS: BP 132/54
[2021-06-13 04:22] VITALS: BP 146/59
[2021-06-13 06:32] LABS: ABSOLUTE LYMPHOCYTES 0.8 thou/uL (0.8-5.3); ABSOLUTE NEUTROPHILS 14.8 thou/uL (1.6-8.1); BASOPHILS 0.1 %; HEMATOCRIT 27.9 % (37.0-47.0); HEMOGLOBIN 9.2 gm/dL (12.0-15.0); LYMPHOCYTES 4.7 %; MCH 30.5 pg (26.0-34.0); MCV 92.3 fL (80.0-100.0); MONOCYTES 5.9 %; MPV 9.1 fl. (7.2-11.1); NUCLEATED RBCS 0 /100WBC; PLATELET COUNT* 174 thou/uL (150-400); POLYS 89.3 %; RBC 3.02 mil/uL (4.20-5.00); RDW-CV 14.3 % (10.5-14.5); WBC 16.6 thou/uL (4.0-11.0)
[2021-06-13 07:01] LABS: ALBUMIN 1.7 g/dL (3.4-5.0); CALCIUM 7.8 mg/dL (8.5-10.1); CREATININE 0.8 mg/dL (0.6-1.3); TOTAL BILIRUBIN 0.4 mg/dL (<0.1-1.0); TOTAL PROTEIN 5.1 g/dL (6.4-8.2)
[2021-06-13 08:00] VITALS: BP 136/53
--- NOTE | 2021-06-13 11:06 | EKG ---
[place] [address] ELECTROCARDIOGRAM REPORT Name: CMDOMINIQUE Pablo Room: [address] ADM IN M.R.#: [id number] Admission: 06/10/21 Attend Phys: Iban Herman Discharge: Date of : 33 Date of Service: 06/13/21 0940 Report #: [id number] THIS REPORT FOR: //name// [facility] Test Date: 2021-06-13 Test Time: 09:40:55 Pat Name: DOMINIQUE PABON Department: Room: [address] Gender: F Derrick Builder: : 1935 Requested By: Jero Weaver Order Number: [id number] Rocio MD: Jero Weaver Measurements Intervals [place] Rate: 73 P: ND: QRS: 50 QRSD: 87 T: 223 QT: 356 QTc: 393 Interpretive Statements Atrial fibrillation Repol abnrm suggests ischemia, anterolateral Compared to ECG 06/12/2021 10:23:52 No significant changes Electronically Signed On 06-13-2021 11:06:01 OPERATIONS INSPECTOR by Jero Weaver [email or web address] <ELECTRONICALLY SIGNED> By: Jero Weaver MD, [facility] 06/13/21 1106 0940 0940 Jero Weaver MD, [facility] /EPI
[2021-06-13 12:05] VITALS: BP 142/43
--- NOTE | 2021-06-13 12:48 | CON ---
[address] [address] CONSULTATION Name: DOMINIQUE PABON Room: [address] IN M.R.#: [id number] Admission: 06/10/21 Attend Phys: Rob Koo Discharge: Date of : 33 Report #: [id number] THIS REPORT FOR: cc: Tim Wills MD, Dean L. MD Blick,Jero Navarro MD [facility] ~ DATE OF CONSULTATION: 06/11/2021 CARDIOLOGY CONSULTATION HISTORY OF PRESENT ILLNESS: The patient is an 85-year-old white female whom I was asked to see in the emergency room today after she was noted to be in atrial fibrillation. The patient has a history of dementia and lives in [facility]. She was brought to the emergency room last night. The patient apparently fell at the [facility] and was left on the floor for 2 days. She complained of hip pain. She complained of being weak. She apparently tripped. There is no loss of consciousness. She has no history of heart disease. She denied any chest pain, shortness of breath, palpitations. She currently complains of hip pain. PAST MEDICAL HISTORY: She was actually admitted here to [facility] last month in May with COVID-19 pneumonia. She has a history of diabetes. She also has a history of hypertension, COPD. PAST SURGICAL HISTORY: She has had a previous hysterectomy, appendectomy. MEDICATIONS: Her medications at the [facility] consisted Advair, metoprolol, ____, Ventolin inhaler. SOCIAL HISTORY: She smoked in the past. No history of alcohol abuse. REVIEW OF SYSTEMS: There is no history of stroke. She does have dementia. No history of kidney disease. She does have a history of diabetes. PHYSICAL EXAMINATION: GENERAL: Revealed an elderly, frail-appearing female, lying in bed. VITAL SIGNS: She had a blood pressure of 130/80, pulse is 110 and regular. She is afebrile. HEENT: She was anicteric. Conjunctivae pink. Mucous membranes moist. NECK: Vein do not appeared distended. CHEST: Clear to auscultation. HEART: ____ tachycardia. No significant murmur. ABDOMEN: Soft. EXTREMITIES: Had no pitting edema. NEUROLOGIC: She is able to move all extremities. [place] [address] CONSULTATION Name: DOMINIQUE PABON Room: [address]#: [id number] Admission: 06/10/21 Attend Phys: Rob Koo Discharge: Date of : 33 Report #: [id number] LABORATORY DATA: ECG shows atrial fibrillation with rapid ventricular response rate, nonspecific ST and T-wave changes, Q-waves in V1 and V2. The patient actually had an echocardiogram done last month here at [facility] that showed ejection fraction 60%, mild mitral regurgitation. She had a portable chest x-ray performed last night that showed some atelectasis, interstitial infiltrates. Lab work, creatinine 0.9, high sensitivity troponin was 15. Her hemoglobin 13.1. Her COVID antigen stat test is positive. IMPRESSION AND RECOMMENDATIONS: 1. Hip fracture. The patient appears to have no cardiac contraindication to surgery. 2. Atrial fibrillation. No previous history. Recommend diltiazem to slow the ventricular response rate. I would consider anticoagulation. 3. Dementia. 4. Hypertension. The patient has been on metoprolol in the past. 5. Recent episode of COVID-19 pneumonia. 6. Obesity. <ELECTRONICALLY SIGNED> By: Jero Weaver MD, FACC 06/13/21 1248 1055 [email or web address] Weaver MD, FACC /nt
[2021-06-13 16:00] VITALS: BP 151/51
[2021-06-13 20:00] VITALS: BP 130/62
[2021-06-14] VITALS: BP 131/84
[2021-06-14 04:00] VITALS: BP 154/48
[2021-06-14 06:33] LABS: HEMATOCRIT 25.3 % (37.0-47.0); HEMOGLOBIN 8.2 gm/dL (12.0-15.0); MCH 30.1 pg (26.0-34.0); MCHC 32.4 g/dL (28.0-37.0); MCV 92.9 fL (80.0-100.0); MPV 8.9 fl. (7.2-11.1); NUCLEATED RBCS 0 /100WBC; PLATELET COUNT* 162 thou/uL (150-400); RBC 2.73 mil/uL (4.20-5.00); RDW-CV 14.2 % (10.5-14.5); WBC 12.6 thou/uL (4.0-11.0)
[2021-06-14 07:00] LABS: ALBUMIN 1.6 g/dL (3.4-5.0); CALCIUM 7.3 mg/dL (8.5-10.1); CREATININE 0.6 mg/dL (0.6-1.3); POTASSIUM 3.9 mmol/L (3.5-5.1); TOTAL BILIRUBIN 0.3 mg/dL (<0.1-1.0); TOTAL PROTEIN 4.7 g/dL (6.4-8.2)
[2021-06-14 07:24] LABS: ABSOLUTE MONOCYTES 1.1 thou/uL (0.0-1.2); ABSOLUTE NEUTROPHILS 10.5 thou/uL (1.6-8.1)
[2021-06-14 07:25] LABS: PLATELET ESTIMATE ADEQUATE
[2021-06-14] MEDS ORDERED: ELIQUIS5 MG PO (07:38)
[2021-06-14] MEDS ORDERED: CARDIZEM CD120 MG PO (07:38)
[2021-06-14] MEDS ORDERED: DOXYCYCLINE 10100 MG PO (07:49)
[2021-06-14 08:00] VITALS: BP 160/56
[2021-06-14 11:39] VITALS: BP 154/57
[2021-06-14 15:56] VITALS: BP 175/77
== END 2021-06-14 17:51 | DRG 521 ==
LOC: M.ERS 17:56 → M.TBA-ER 20:33 → M.TBA-CV 06-11 18:01 → M.2W 06-11 19:00
PROVIDERS: Internal Medicine; Internal Medicine Cardiovascular Disease; Physician Assistant; ADMIT Internal Medicine; ATTEND Internal Medicine
PROC: 02HV33Z Insertion of Infusion Device into Superior Vena Cava, Percutaneous Approach (ICD-10-PCS; principal; 2021-06-11)
PROC: 0SRR0J9 Replacement of Right Hip Joint, Femoral Surface with Synthetic Substitute, Cemented, Open Approach (ICD-10-PCS; 2021-06-11)
DX: M80.851A Other osteoporosis with current pathological fracture, right femur, initial encounter for fracture (principal); E43 Unspecified severe protein-calorie malnutrition; G93.41 Metabolic encephalopathy; I26.99 Other pulmonary embolism without acute cor pulmonale; J18.9 Pneumonia, unspecified organism; D62 Acute posthemorrhagic anemia; Z20.822 Contact with and (suspected) exposure to COVID-19; J44.9 Chronic obstructive pulmonary disease, unspecified; D72.829 Elevated white blood cell count, unspecified; E11.9 Type 2 diabetes mellitus without complications; F03.90 Unspecified dementia, unspecified severity, without behavioral disturbance, psychotic disturbance, mood disturbance, and anxiety; I10 Essential (primary) hypertension; I48.91 Unspecified atrial fibrillation; M16.12 Unilateral primary osteoarthritis, left hip; J34.89 Other specified disorders of nose and nasal sinuses; N63.20 Unspecified lump in the left breast, unspecified quadrant; E66.9 Obesity, unspecified; W01.0XXA Fall on same level from slipping, tripping and stumbling without subsequent striking against object, initial encounter; Y93.89 Activity, other specified; Y92.129 Unspecified place in nursing home as the place of occurrence of the external cause; Y99.8 Other external cause status; Z87.440 Personal history of urinary (tract) infections; Z90.49 Acquired absence of other specified parts of digestive tract; Z90.710 Acquired absence of both cervix and uterus; Z98.891 History of uterine scar from previous surgery; Z79.899 Other long term (current) drug therapy; Z79.51 Long term (current) use of inhaled steroids; Z79.52 Long term (current) use of systemic steroids; Z88.5 Allergy status to narcotic agent; Z88.0 Allergy status to penicillin; Z88.2 Allergy status to sulfonamides; Z88.1 Allergy status to other antibiotic agents; Z91.041 Radiographic dye allergy status; Z87.891 Personal history of nicotine dependence; Z68.24 Body mass index [BMI] 24.0-24.9, adult; Z86.16 Personal history of COVID-19; Z87.01 Personal history of pneumonia (recurrent)